=== PATIENT | male | born 1965 | race Caucasian/White ===

== ENCOUNTER 2018-07-01 23:43 | Emergency (ER) | payer OTHER ==
[2018-07-02] MEDS ORDERED: methylPREDNISolone SOD SUCC 125 MG/2 ML VIAL IVP ONE (00:05)
[2018-07-02] MEDS ORDERED: FAMOTIDINE 20 MG in NS 100 ML IV ONE (00:05)
--- NOTE | 2018-07-02 00:05 | EDPHY ---
H & P Time Seen by Provider: 07/01/18 23:54 HPI/ROS: CC: Tongue swelling HPI: This 53-year-old male with past medical history of hypertension and high cholesterol presents to emergency department today with tongue swelling since this evening. He has had no prior episodes of this sort. He started amoxicillin 1 week ago for a dental infection. He also had some grapes this evening after which the right side of his tongue started itching and then swelling. He took 50 mg of Benadryl at approximately 10:45 p.m. and does not think the swelling has gotten worse since that time (he also took his third dose of Amoxicillin at 10:45pm). He has not had food allergies or medication allergies in the past. He does not remember if he has ever had penicillin before. He states his throat is itching a little bit but he is not having any trouble swallowing and he denies trouble breathing. He does not feel lightheaded, he has no chest pain or abdominal pain. He has had an occasional scant rash (pointing to his wrist) but this started prior to the penicillin and he wonders if it is from a cat that they adopted a little over 3 months ago. REVIEW OF SYSTEMS: Constitutional: No fever, no chills. Eyes: No discharge. ENT: No sore throat. Respiratory: No cough, no shortness of breath. Cardiac: No chest pain, no palpitations. Gastrointestinal: No abdominal pain, no vomiting. Genitourinary: No hematuria. Musculoskeletal: No back pain. Skin: See HPI. Neurological: No headache. Source: Patient Exam Limitations: No limitations - Medical/Surgical History PMH: Past medical history includes hypertension and hypercholesterolemia. Past surgical history includes cholecystectomy and appendectomy. Family history mother had hypertension he does not know his father's medical history. Prior to this evening he has no known medication or food allergies. Medications include metoprolol 50 mg daily, atorvastatin 20 mg daily, aspirin 81 mg daily. His dentist is Dr. Rip Silverio at [facility] in [place]. His primary care provider is at [facility]. - Social History Additional Social History: The patient denies tobacco products, he has occasional alcohol, no marijuana products. - Physical Exam Exam: General Appearance: Alert, mild distress. Eyes: Pupils equal and round no pallor or injection. ENT, Mouth: Mucous membranes are moist. The right side of the tongue is swollen to approximately twice normal size. Respiratory: There are no retractions, breathing is nonlabored, lungs are clear to auscultation. Cardiovascular: Regular rate and rhythm. Gastrointestinal: Abdomen is soft and nontender, no masses, bowel sounds normal. Neurological: Awake and alert, sensory and motor exams grossly normal. Skin: Warm and dry, no visible rashes. Musculoskeletal: Neck is supple, nontender. Extremities are symmetrical, full range of motion. Psychiatric: Patient is oriented X 3, there is no agitation. DIFFERENTIAL DIAGNOSIS: After history and physical exam differential diagnosis was considered for but not limited to and in no particular order: [Medication allergy, food allergy, allergy to unknown substance, angioedema.] Constitutional: Initial Vital Signs Temperature (C) 98.6 F 07/01/18 23:50 Heart Rate 87 07/01/18 23:50 Respiratory Rate 16 07/01/18 23:50 Blood Pressure 142/88 H 07/01/18 23:50 O2 Sat (%) 97 07/01/18 23:50 O2 Delivery Mode Room Air Allergies/Adverse Reactions: No Known Allergies Allergy (Unverified 07/01/18 23:53) Home Medications: Medication Instructions Recorded Aspirin 81mg (*) 07/01/18 Atorvastatin Calcium 07/01/18 Metoprolol Tartrate 07/01/18 Penicillin V Potassium 07/01/18 Famotidine [Pepcid] 20 mg PO BID 7 Days #14 tablet 07/02/18 predniSONE 20 mg PO BID 7 Days #14 tablet 07/02/18 Medical Decision Making ED Course/Re-evaluation: The patient was seen and examined. Vital signs reviewed. An IV was placed and he was given Solu-Medrol 125 mg IV push as well as Pepcid 20 mg IV push. He had already taken 50 mg of Benadryl at home. He was monitored for another hour with no additional swelling to his tongue and his airway remained patent throughout. He was given a prescription for prednisone as well as Pepcid. He will continue [id number] Benadryl or Zyrtec as directed. He is to discontinue the amoxicillin. He should follow up with his dentist to see if he should start another antibiotic for his dental issue. He should follow up with his primary care provider to consider allergy testing. At this time I think the most likely etiology of this allergic reaction is the amoxicillin. - Data Points Medications Given: Discontinued Medications Famotidine 20 mg/ Sodium (Chloride) 102 mls @ 408 mls/hr IV EDNOW ONE Stop: 07/02/18 00:19 Last Admin: 07/02/18 00:21 Dose: 102 mls Methylprednisolone Sodium Succinate (Solu-Medrol) 125 mg IVP EDNOW ONE Stop: 07/02/18 00:06 Last Admin: 07/02/18 00:21 Dose: 125 mg Departure - Departure Disposition: Home, Routine, Self-Care Clinical Impression: Allergic reaction Qualifiers: Encounter type: initial encounter Qualified Code(s): T78.40XA - Allergy, unspecified, initial encounter Condition: Good Instructions: Food Allergy (ED), Antibiotic Medication Allergy (ED), General Allergic Reaction (ED) Additional Instructions: Discontinue the amoxicillin. I think this is the most likely cause for your allergic reaction however a food allergy or other allergy cannot be completely ruled out. Follow up with your dentist to see if he wants you to start a different antibiotic. Take the prednisone as prescribed. Continue Benadryl 1 or 2 tablets every 6 hr as needed. If the Benadryl makes you too tired, you my substitute Zyrtec instead (talk to your pharmacist if questions). Continue the Pepcid 20 mg twice a day in conjunction with the Benadryl. Follow up with your primary care provider. You may want to have allergy testing. If the tongue swelling gets worse or you feel like you are having difficulty breathing or any other concerns, call 911 and return to the ER. Referrals: Syed Leahy MD [Medical Doctor] - As per Instructions Prescriptions: Famotidine [Pepcid] 20 mg PO BID 7 Days #14 tablet predniSONE 20 mg PO BID 7 Days #14 tablet
[2018-07-02] MEDS ORDERED: FAMOTIDINE 20 MG TAB PO ONE (01:01)
[2018-07-02] MEDS ORDERED: predniSONE 20 MG TAB PO ONE (01:01)
[2018-07-02 01:34] VITALS: BP 131/89
== END 2018-07-02 01:15 | disposition home or self-care (01) ==
LOC: CED 23:43
DX: T78.40XA Allergy, unspecified, initial encounter (principal)
CPT/HCPCS: 96365; J2930; J7512